=== PATIENT | female | born 1955 | race Caucasian/White ===

== ENCOUNTER 2018-01-02 09:38 | Emergency (ER) | payer BC ==
[~2018-01-02] VITALS: Ht 172.7 cm; Wt 68.0 kg
[~2018-01-02 09:38] MED LIST: SYNT25TA PO; TAB-TAB PO
[2018-01-02 10:09] VITALS: BP 172/96; PULSE 92; RESP 20; TEMP 98.3; O2SAT 96
--- NOTE | 2018-01-02 10:41 | RADRPT ---
EXAM DATE/TIME: 01/02/2018 10:33 [place] COMPARISON: No previous studies available for comparison. INDICATIONS : Patient states chest pains. MEDICAL HISTORY : Hypothyroidism. SURGICAL HISTORY : None. ENCOUNTER: Initial ACUITY: 3 days PAIN SCORE: 7/10 LOCATION: Bilateral chest FINDINGS: PA and lateral views of the chest demonstrate the lungs to be symmetrically aerated without evidence of mass, infiltrate or effusion. There is minimal atelectasis in the right middle lobe. The cardiome diastinal contours are unremarkable. Osseous structures are intact. CONCLUSION: Minimal atelectasis in the right middle lobe with no acute cardiopulmonary disease. Sujit Sims MD on January 02, 2018 at 10:35 Board Certified Radiologist. This report was verified electronically.
--- NOTE | 2018-01-02 11:25 | PD ---
HPI . Chest pain Chief Complaint: Chest Pain Time Seen by Provider: 10:45 Travel History International Travel<30 days: No Contact w/Intl Traveler<30days: No Traveled to known affect area: No History of Present Illness HPI This patient presents with chief complaint of chest pain. Onset was about 3 days ago. The chest pain is intermittent. It is very brief. She describes it as a wave moving over her chest. It is very mild. The pain tends to come at night. She estimates approximately 5 episodes per day. The pain is associated with tingling in her left hand and feeling jittery on the inside. She is a non- smoker and has no history of hypertension or diabetes. PFSH Past Medical History Heart Rhythm Problems: No Cardiac Catheterization: No Cardiovascular Problems: Yes (PATIENT STATES HAVING PALPITATIONS YEARS AGO) High Cholesterol: No Congestive Heart Failure: No Diabetes: No Diminished Hearing: No ?: Not Menopausal: Yes Tubal Ligation: Yes Past Surgical History Coronary Artery Bypass Graft: No Social History Alcohol Use: Yes (WINE OCCASIONALLY) Tobacco Use: No Substance Use: No (DENIES) Allergies-Medications (Allergen,Severity, Reaction): Coded Allergies: penicillin G (Verified Allergy, Severe, HIVES, 01/02/18) Reported Meds & Prescriptions Reported Meds & Active Scripts Active Review of Systems Except as stated in HPI: all other systems reviewed are Neg General / Constitutional: Positive: Other (No diaphoresis), No: Fever, Chills Cardiovascular: Positive: Chest Pain or Discomfort, Palpitations Respiratory: No: Shortness of Breath Gastrointestinal: No: Nausea Neurologic: Positive: Paresthesia (Left hand paresthesias) Physical Exam Narrative GENERAL: Awake and alert and in no distress. SKIN: warm/dry. HEAD: Normocephalic. Atraumatic. EYES: Pupils equal and round. No scleral icterus. No injection or drainage. ENT: No nasal bleeding or discharge. Mucous membranes pink and moist. NECK: Trachea midline. Full range of motion without pain.. CARDIOVASCULAR: Regular rate and rhythm. Heart sounds normal. RESPIRATORY: No accessory muscle use. Clear to auscultation. Breath sounds equal bilaterally. GASTROINTESTINAL: Abdomen soft. Nontender. Bowel sounds present. Nondistended. MUSCULOSKELETAL: No obvious deformities. No edema. NEUROLOGICAL: Awake and alert. No obvious cranial nerve deficits. Motor grossly within normal limits. Normal speech. PSYCHIATRIC: Appropriate mood and affect; insight and judgment normal. Data Data Last Documented VS Vital Signs Date Time Temp Pulse Resp B/P (MAP) Pulse Ox O2 Delivery O2 Flow Rate FiO2 01/02/18 12:22 65 15 Room Air 01/02/18 12:15 98 01/02/18 10:09 98.3 Orders Orders Electrocardiogram (01/02/18 10:12) Complete Blood Count With Diff (01/02/18 10:12) Basic Metabolic Panel (Bmp) (01/02/18 10:12) Ckmb (Isoenzyme) Profile (01/02/18 10:12) Troponin I (01/02/18 10:12) Iv Access Insert/Monitor (01/02/18 10:12) Ecg Monitoring (01/02/18 10:12) Oxygen Administration (01/02/18 10:12) Oximetry (01/02/18 10:12) Chest, Pa & Lat (01/02/18 10:12) Thyroid Stimulating Hormone (01/02/18 11:20) Sodium Chlor 0.9% 1000 Ml Inj (Ns 1000 M (01/02/18 12:15) CKMB (01/02/18 10:25) CKMB% (01/02/18 10:25) Labs Laboratory Tests Test 01/02/18 10:25 01/02/18 12:45 Blood Urea Nitrogen 16 MG/DL Creatinine 0.72 MG/DL Random Glucose 87 MG/DL Calcium Level 9.4 MG/DL Sodium Level 142 MEQ/L Potassium Level 4.6 MEQ/L Chloride Level 108 MEQ/L Carbon Dioxide Level 24.1 MEQ/L Anion Gap 10 MEQ/L Estimat Glomerular Filtration Rate 82 ML/MIN Total Creatine Kinase 117 U/L Creatine Kinase MB 0.6 NG/ML Troponin I LESS THAN 0.02 NG/ML Thyroid Stimulating Hormone 3rd Gen 2.490 uIU/ML White Blood Count 5.7 TH/MM3 Red Blood Count 4.20 MIL/MM3 Hemoglobin 12.9 GM/DL Hematocrit 38.7 % Mean Corpuscular Volume 92.2 FL Mean Corpuscular Hemoglobin 30.8 PG Mean Corpuscular Hemoglobin Concent 33.4 % Red Cell Distribution Width 13.7 % Platelet Count 244 TH/MM3 Mean Platelet Volume 7.9 FL Neutrophils (%) (Auto) 69.8 % Lymphocytes (%) (Auto) 20.2 % Monocytes (%) (Auto) 8.3 % Eosinophils (%) (Auto) 0.9 % Basophils (%) (Auto) 0.8 % Neutrophils # (Auto) 4.0 TH/MM3 Lymphocytes # (Auto) 1.2 TH/MM3 Monocytes # (Auto) 0.5 TH/MM3 Eosinophils # (Auto) 0.1 TH/MM3 Basophils # (Auto) 0.0 TH/MM3 CBC Comment DIFF FINAL Differential Comment MDM Medical Decision Making Medical Screen Exam Complete: Yes Emergency Medical Condition: Yes Interpretation(s) EKG shows a sinus rhythm with no acute ischemic change. Differential Diagnosis Differential diagnosis of chest pain includes but is not limited to musculoskeletal pain, pulmonary embolism, acute coronary syndrome, pneumonia, pleurisy Narrative Course This patient presents for the evaluation of chest pain. She has had intermittent, brief chest pain for the last 3 days. She is currently pain- free. Her only associated symptoms paresthesias in the left hand. She does not have any risk factors for coronary artery disease. CXR>>Minimal atelectasis in the right middle lobe with no acute cardiopulmonary disease. The chest x-ray was independently reviewed by me. BMP Diagram 01/02/18 10:25 Calcium Level 9.4 CBC Diagram 01/02/18 12:45 trop < 0.02 TSH 2.49 The etiology of her episodic chest pain has not been discovered. However, I do not suspect a cardiac etiology for the pain as the pain has been extremely brief. She raises the possibility of anxiety. I feel that that is a more likely diagnosis. She will be discharged home with instructions to follow-up with her primary care provider. I did offer admission to the chest pain center but she is not interested in admission. Diagnosis Primary Impression: Chest pain Qualified Codes: R07.9 - Chest pain, unspecified Patient Instructions: Chest Pain (DC), General Instructions Scripts No Active Prescriptions or Reported Meds Disposition: DISCHARGE HOME Condition: Stable Genna Ferraro MD Jan 02, 2018 11:25
[2018-01-02 11:46] VITALS: BP 110/55; PULSE 85; RESP 16; O2SAT 100
[2018-01-02 12:15] VITALS: BP 78/52; PULSE 45; RESP 15; O2SAT 98
[2018-01-02] MEDS ORDERED: SODIUM CHLOR 0.9% 1000 ML INJ 1,000 ML IV ONE (12:15)
[2018-01-02 12:22] VITALS: PULSE 65; RESP 15
[2018-01-02 12:25] LABS: BICARBONATE 24.1 MEQ/L (21.0-32.0); BLOOD UREA NITROGEN 16 MG/DL (7-18); CALCIUM 9.4 MG/DL (8.5-10.1); CHLORIDE 108 MEQ/L (98-107); CREATININE 0.72 MG/DL (0.50-1.00); GLOMERULAR FILTRATION RATE 82 ML/MIN (>89); GLUCOSE,RANDOM 87 MG/DL (74-106); SODIUM (NA) 142 MEQ/L (136-145); TROPONIN I LESS THAN 0.02 NG/ML (0.02-0.05)
[2018-01-02 13:06] LABS: BASOPHIL % 0.8 % (0.0-2.0); EOSINOPHIL # 0.1 TH/MM3 (0-0.4); EOSINOPHIL % 0.9 % (0.0-4.0); HEMATOCRIT 38.7 % (35.0-46.0); HEMOGLOBIN 12.9 GM/DL (11.6-15.3); LYMPH % 20.2 % (9.0-44.0); LYMPHOCYTE # 1.2 TH/MM3 (1.0-4.8); MEAN CELL VOLUME 92.2 FL (80.0-100.0); MEAN CORPUSCULAR HEMOGLOBIN 30.8 PG (27.0-34.0); MEAN CORPUSCULAR HGB CONC 33.4 % (32.0-36.0); MEAN PLATELET VOLUME 7.9 FL (7.0-11.0); MONO % 8.3 % (0.0-8.0); MONOCYTE # 0.5 TH/MM3 (0-0.9); NEUT % 69.8 % (16.0-70.0); PLATELET COUNT 244 TH/MM3 (150-450); RED CELL DISTRIBUTION WIDTH 13.7 % (11.6-17.2); WHITE BLOOD COUNT 5.7 TH/MM3 (4.0-11.0)
--- NOTE | 2018-01-03 00:04 | EKG ---
Date Performed: 01/02/2018 Time Performed: 10:16:50 PTAGE: 62 years EKG: Sinus rhythm POSSIBLE LEFT ATRIAL ENLARGEMENT BORDERLINE ECG INTERPRETATION BASED ON A DEFAULT AGE OF 39 YEARS NO PREVIOUS TRACING DOCTOR: Chi Morrison Interpretating Date/Time 01/02/2018 23:59:42
== END 2018-01-02 14:45 | disposition home or self-care (01) ==
LOC: NEPC 09:38
DX: R07.9 Chest pain, unspecified (principal); R20.2 Paresthesia of skin
CPT/HCPCS: 71046; 80048; 82550; 82552; 84443; 84484; 85025; 93005; 99285; J7030